=== PATIENT | female | born 1960 | race Caucasian/White ===

== ENCOUNTER 2023-10-15 07:18 | Day surgery (SDC) | payer OTHER ==
[~2023-10-15] VITALS: Ht 162.6 cm; Wt 58.5 kg
[2023-10-15] MEDS ORDERED: MIDAZOLAM HCL 5 MG/5 ML VIAL ONE (07:24)
[2023-10-15] MEDS ORDERED: MEPERIDINE 100 MG INJ. 100 MG/ML VIAL ONE (07:24)
[2023-10-15 10:00] VITALS: O2SAT 99
[2023-10-15 13:34] VITALS: BP_SYST 110; PULSE 85; RESP 18; TEMP 97.5
== END 2023-10-15 10:50 | disposition home or self-care (01) ==
LOC: SDS 07:18 → SMU 07:19 → SDS 10:50
PROVIDERS: ATTEND Internal Medicine
DX: Z12.11 Encounter for screening for malignant neoplasm of colon (principal); K57.30 Diverticulosis of large intestine without perforation or abscess without bleeding; K64.8 Other hemorrhoids; I10 Essential (primary) hypertension; E78.5 Hyperlipidemia, unspecified; E03.9 Hypothyroidism, unspecified; E11.9 Type 2 diabetes mellitus without complications; M19.90 Unspecified osteoarthritis, unspecified site; Z79.84 Long term (current) use of oral hypoglycemic drugs; Z79.890 Hormone replacement therapy; Z79.899 Other long term (current) drug therapy
CPT/HCPCS: 45378; 99152; 82948; G0378; J2250; J2175